=== PATIENT | male | born 1950 | race Caucasian/White ===

== ENCOUNTER → 2017-08-22 | Outpatient (CLI) | payer OTHER | LOC: BMCIMAGING 13:58 | PROVIDERS: ATTEND Internal Medicine Rheumatology | DX: M47.896 Other spondylosis, lumbar region (principal) ==

== ENCOUNTER → 2017-12-14 | Outpatient (CLI) | payer OTHER | LOC: FIMAGING 18:27 | PROVIDERS: ATTEND Internal Medicine | DX: M48.062 Spinal stenosis, lumbar region with neurogenic claudication (principal); G83.4 Cauda equina syndrome; M51.36 Other intervertebral disc degeneration, lumbar region; M43.06 Spondylolysis, lumbar region ==

== ENCOUNTER 2018-01-17 08:52 | Inpatient (IN) | payer OTHER ==
[~2018-01-17 08:52] MED LIST: TRANEXAMIC ACID 1,000 MG in NS (SYRINGE) 50 ML IV ONE
[2018-01-17] MEDS ORDERED: ACETAMINOPHEN 500 MG TAB PO ONE (09:37)
[2018-01-17] MEDS ORDERED: GABAPENTIN 300 MG CAP PO ONE (09:37)
[2018-01-17] MEDS ORDERED: ceFAZolin 2 GM/DEXTROSE 100 ML IV ONE ×2 (09:37→09:45)
[2018-01-17] MEDS ORDERED: morphINE SR 15 MG TAB PO ONE (09:37)
[2018-01-17] MEDS ORDERED: LR 1,000 ML IV ONE (09:39)
[2018-01-17] MEDS ORDERED: EPINEPHrine 1 MG/ML INJ ONE (09:43)
[2018-01-17] MEDS ORDERED: GENTAMICIN SULFATE 80 MG/2 ML VIAL ONE (09:43)
[2018-01-17] MEDS ORDERED: THROMBIN (BOVINE) 20,000 UNIT VIAL TP ONE (09:43)
[2018-01-17] MEDS ORDERED: BUPIVACAINE 0.25% 30 ML SDV ONE (09:43)
[2018-01-17] MEDS ORDERED: CHLORHEXIDINE GLUC HIBICLENS 118 ML BTL TP ONE (09:43)
--- NOTE | 2018-01-17 10:03 | PDHPUP ---
History & Physical Update H&P update statement: This history and physical update is based on an assessment of the patient which was completed after admission or registration (within 24 hours), but prior to the surgery/procedure. H&P update: H&P reviewed & patient examined, no change in patient's condition since H&P completed
--- NOTE | 2018-01-17 10:13 | PDANEPAE ---
ANE History of Present Illness L1-L4 TLIF ANE Past Medical History - Cardiovascular History Hx Hypertension: Yes Hx Arrhythmias: No Hx Chest Pain: No Hx Coronary Artery / Peripheral Vascular Disease: No Hx CHF / Valvular Disease: No Hx Palpitations: No - Pulmonary History Hx COPD: No Hx Asthma/Reactive Airway Disease: No Hx Recent Upper Respiratory Infection: No Hx Oxygen in Use at Home: No Hx Sleep Apnea: No Sleep Apnea Screening Result - Last Documented: Positive - Neurologic History Hx Cerebrovascular Accident: No Hx Seizures: No Hx Dementia: No - Endocrine History Hx Diabetes: Yes Endocrine History Comment: NEW DX DIABETES 04/2014- Type 2, managed with diet no meds - Renal History Hx Renal Disorders: No Renal History Comment: Asymptomatic stones. creat up to 1.6,? 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 - Congenital Disorder History Hx Congenital Disorders: No - GI History Hx Gastrointestinal Disorders: Yes Gastrointestinal History Comment: GERD-resolved with wt loss. - Other Health History Other Health History: Dermatitis scalp & forehead, treated with OTC creams. Rheumatoid arthritis-meds.Osteoarthritis in knees. Missing teeth upper right. Mild anemia from methotrexate.leflunemide causes rash on protestant - Chronic Pain History Chronic Pain: No - Surgical History Prior Surgeries: APPENDECTOMY. CATARACTS ARMANDO. R TKA, L TKA ANE Review of Systems Review of systems is: negative Review of Systems: - Exercise capacity Exercise capacity: >=4 METS METS (RN): 5 METS ANE Patient History - Allergies Allergies/Adverse Reactions: NSAIDS (Non-Steroidal Anti-Inflamma Adverse Reaction (Verified 01/17/18 09:53) Other-Enter Comments - Home Medications Home Medications: Folic Acid [Folic Acid 1 MG (RX)] 1 mg PO DAILY 08/04/14 [Last Taken 08/18/14] Leflunomide [Arava 10 mg (RX)] 10 mg PO DAILY 08/04/14 [Last Taken 08/18/14] Methotrexate Sodium [Methotrexate] 15 mg PO TU@09 08/04/14 [Last Taken 08/18/14] Lisinopril [Zestril 10 mg (RX)] 10 mg PO HS 08/08/14 [Last Taken 08/24/14 18:30] Hydrocodone/Acetaminophen [Bell 5/325 (*)] 1 each PO DAILY 01/04/18 [Last Taken Unknown] Tamsulosin HCl [Flomax 0.4 MG (*)] 0.4 mg PO HS 01/04/18 [Last Taken Unknown] - NPO status NPO Status: no food or drink >8 hours NPO Since - Liquids (Date): 01/16/18 NPO Since - Liquids (Time): 19:30 NPO Since - Solids (Date): 01/16/18 NPO Since - Solids (Time): 12:00 - Anes Hx Anes Hx: no prior problems - Smoking Hx Smoking Status: Former smoker Marijuana use: Yes - Alcohol Use Alcohol Use: None - Family Anes Hx Family Anes Hx: none Family Hx Anesthesia Complications: none ANE Labs/Vital Signs - Vital Signs Blood Pressure: 166/73 Heart Rate: 67 Respiratory Rate: 18 O2 Sat (%): 96 Height: 172.72 cm Weight: 88.904 kg ANE Physical Exam - Airway Neck exam: FROM Mallampati Score: Class 2 Mouth exam: normal dental/mouth exam - Pulmonary Pulmonary: no respiratory distress - Cardiovascular Cardiovascular: regular rate and rhythym - ASA Status ASA Status: II ANE Anesthesia Plan Anesthesia Plan: general endotracheal anesthesia Lines/Monitors: arterial line
[2018-01-17] MEDS ORDERED: MIDAZOLAM 2 MG/2 ML VIAL IVP ONE (10:16)
[2018-01-17] MEDS ORDERED: ROCURONIUM 50 MG/5 ML VIAL ONE (10:21)
[2018-01-17] MEDS ORDERED: REMIFENTANIL HCL 1 MG VIAL ONE ×3 (10:21→14:35)
[2018-01-17] MEDS ORDERED: PROPOFOL 200 MG/20 ML VIAL ONE (10:21)
[2018-01-17] MEDS ORDERED: fentaNYL 100 MCG/2 ML INJ ONE (10:21)
[2018-01-17] MEDS ORDERED: DEXAMETHASONE 4 MG/ML VIAL ONE (10:21)
[2018-01-17] MEDS ORDERED: PROPOFOL/EMULSION 500 MG/50 ML BOTTLE IV ONE ×3 (10:21→14:35)
[2018-01-17] MEDS ORDERED: PHENYLEPHRINE 10 MG/ML SDV ONE ×2 (11:42)
[2018-01-17] MEDS ORDERED: ceFAZolin 1 GM VIAL ONE ×2 (14:00)
[2018-01-17] MEDS ORDERED: HYDROmorphONE/DILAUDID 2 MG/ML INJ ONE (16:17)
[2018-01-17] MEDS ORDERED: NALOXONE HCL 0.4 MG/ML INJ IVP PRN (17:07)
[2018-01-17] MEDS ORDERED: LABETALOL HCL 5 MG/ML 20 ML MDV IVP PRN (17:07)
[2018-01-17] MEDS ORDERED: HYDROmorphONE/DILAUDID 1 MG/ML INJ IVP PRN (17:07)
[2018-01-17] MEDS ORDERED: ONDANSETRON 4 MG/2 ML VIAL IVP PRN ×2 (17:07→17:12)
[2018-01-17] MEDS ORDERED: ACETAMINOPHEN 500 MG TAB PO PRN (17:07)
[2018-01-17] MEDS ORDERED: oxyCODONE IR 5 MG TAB PO PRN (17:07)
[2018-01-17] MEDS ORDERED: fentaNYL 100 MCG/2 ML INJ IVP PRN (17:07)
[2018-01-17] MEDS ORDERED: DIAZEPAM 5 MG/ML 1 ML SYR IVP PRN (17:07)
[2018-01-17] MEDS ORDERED: PROMETHAZINE HCL 25 MG/ML INJ IVP PRN (17:07)
[2018-01-17] MEDS ORDERED: MEPERIDINE 25 MG/0.5 ML AMP IVP PRN (17:07)
--- NOTE | 2018-01-17 17:07 | POSTANESTH ---
Post Anesthetic Evaluation Cardiovascular Status: Normal, Stable Respiratory Status: Normal, Stable Level of Consciousness/Mental Status: Can Participate in Eval, Mildly Sleepy, Arousable Pain Control: Adequate, Prn Tx Ordered Nausea/Vomiting Control: Adequate, Prn Tx Ordered Complications Possibly Related to Anesthesia: None Noted
[2018-01-17] MEDS ORDERED: MAGNESIUM HYDROXIDE 30 ML UDCUP PO PRN (17:12)
[2018-01-17] MEDS ORDERED: ONDANSETRON DISINTEGRATING 4 MG TAB PO PRN (17:12)
[2018-01-17] MEDS ORDERED: BISACODYL 10 MG SUPP PR PRN (17:12)
[2018-01-17] MEDS ORDERED: diphenhydrAMINE 25 MG CAP PO PRN (17:12)
[2018-01-17] MEDS ORDERED: LACTULOSE 20 GM/30 ML UDCUP PO PRN (17:12)
[2018-01-17] MEDS ORDERED: POLYETHYLENE GLYCOL 3350 17 GM PKT PO PRN (17:12)
--- NOTE | 2018-01-17 17:13 | GOP ---
Corrected report [f rep st] GENERAL OPERATIVE NOTE DATE OF OPERATION: 01/17/2018 PREOPERATIVE DIAGNOSES: Lumbar stenosis, lumbar spondylosis, radiculopathy, facet cyst, lumbago. POSTOPERATIVE DIAGNOSES: Lumbar stenosis, lumbar spondylosis, radiculopathy, facet cyst, lumbago. PROCEDURE: L1-2, L2-3, L3-4 transforaminal lumbar interbody fusion. L1, L2, L3 , L4 posterior pedicle screws with Secret Labtronic Solera 4.75 system. L1-2, L2-3, L3 -4 Medtronic interbody graft with Elevate 8 x 23 x 8 mm graft at L1-2 and L2-3 and 7 x 23 mm graft at L3-4. Bilateral laminectomy and medial facetectomy with resection of facet cyst at L1-2. Bilateral laminectomy, medial facetectomy at L2-3 and L3-4. Posterior arthrodesis, autograft, allograft, BMP, and Stealth stereotaxis. NEUROSURGEON: Melissa Pinon DO. PIER RUNNER: TAMARA De La Rosa. ESTIMATED BLOOD LOSS: 350 mL. FLUIDS: 2 L crystalloid. URINE OUTPUT: 1100 mL. DRAINS: One ALEX in the subfascial space to bulb suction. SPECIMENS: None. COMPLICATIONS: None. INDICATIONS: This is a 67-year-old male with back and leg pain who has failed conservative management, elected to move forward with 3 level lumbar TLIF, L1-2 , L2-3, L3-4. He was identified, consented. Sites were marked. Brought to the operating room, anesthetized under general endotracheal tube anesthesia. Rolled onto the OR bed with a Jaxon table. All pressure points were appropriately padded. He was prepped and draped in the usual sterile fashion. The O-arm was draped and brought in and an 18-gauge spinal needles were used to preston the incision. Incision was anesthetized with 0.25% Marcaine with epinephrine. Incision was made with a 10 blade. Hemostasis was obtained with Bovie and bipolar cautery. Dissecting down onto the lamina and around the facets of L1-2, L2-3, L3-4. Some hemostasis was obtained with Aquamantys. We then placed Cokers, verified we were at the appropriate position under x-ray, placed the Stealth frame on the spinous process of L4 and took x-rays and then performed a Stealth stereotactic spin. Starting at the left on L4, we used a high-speed drill to drill off the facet at L3-4, found our starting point stereotactically with the awl, tamped it into place. Then, using the _ stereotactically, tapped and measured a 6.5 x 50 mm screw on the left. Checked the hole with a ball-tip probe and then placed the 6.5 x 50 mm screw. We performed the same procedure on the left at L3, placing a 6.5 x 50 mm screw at L2, a 6.5 x 50 mm screw at L1, a 5 x 50 mm screw secondary to pedicle size. We then moved to the other side and performed the exact same procedure, placing a 6.5 x 50 mm screw at L4, a 6.5 x 50 mm screw at L3, 6.5 x 55 mm screw at L2, and a 6.5 x 50 mm screw at L1. We stimmed all screws. All screws except the left L3 stemmed above 20. The left L3 stimmed to 12. We performed a stereotactic spin and all screws were in excellent position. We then used the stereotaxis to drill out the facet joints completely on the right side, as we were going to TLIF from the left. Once we had decorticated fully and drilled out the facet joints, we placed a 90 mm joaquim on the right and placed distraction locking the joaquim into place with the cap screws and the anti-torque device, verifying we had joaquim above and below. We had to place a 100 mm joaquim on the left , also placed distraction on the left, and the rods were in good position. We then used the Leksell to remove the spinous process, interspinous ligaments, and then used a high-speed drill collecting all the bone dust to perform a bilateral laminectomy, medial facetectomy at L1-2, L2-3, L3-4, extending this and performed complete facetectomies at L1-2, L2-3, and L3-4 on the left. There was on the right side at L1-2 a very robust facet cyst which was resected and there was no further compression from this facet cyst after resection. The medial wall of the facet cyst was well scarred to the dura, but we were able to separate and remove any areas of tethering without difficulty. We then were able to retract the nerve roots medially and, starting at L1-2, entered the disk space with an 11 blade and, using sequential libertad, shaved up to an 11, removed the cartilaginous endplates superiorly and inferiorly with ring curettes. Once these had been removed, we measured and placed an 8 x 23 mm Elevate graft after using the trial size packing BMP and the patient's own bone into the disk space, packing the graft with BMP and the patient's own bone, tamping it into place, and then once it was in the appropriate position in the AP and lateral plane, fully deploying it, packing bone posterior. We performed the same procedure at L2-3, placing 8 x 23 mm Elevate graft and at L3 placing a 7 x 23 mm graft. All grafts were in good position at the end of the case. We placed bone posterior to the graft in the disk space. We then copiously irrigated with over 3 L of gentamicin-infused saline, packed BMP into the facet joints on the right and out laterally, bilaterally, and then the patient's own bone mixed with 5 cc of Progenix into the facet joints and out laterally bilaterally. We trocar'ed the drain out inferiorly. Closed the fascia with 0 Vicryl pop-offs, subcutaneous layer with 2-0 Vicryl pop-offs, cutaneous layer with 3-0 Vicryl pop-offs. The skin was closed with 4-0 running Monocryl and Steri-Strips. The drain was sutured in with a 2-0 Vicryl pop-off placed to bulb suction. Neuromonitoring was stable, and there were no complications. /[id number]/MODL [place]ell. work type from General History and Physical (GHP) to General Operative Note (GOP), skb 01/25/2018. JANELLE
--- NOTE | 2018-01-17 17:20 | POSTOPPROG ---
Post Op Note Date of Operation: 01/17/18 Surgeon: Melissa Pinon Precision Filer Hand: Adriana Hoffman PA-C Anesthesiologist: Dr. Mata Anesthesia: GET(General Endotracheal) Pre-op Diagnosis: Lumbar stenosis Post-op Diagnosis: Lumbar stenosis Procedure: L1-L4 TLIF Inf/Abcess present in the surg proc area at time of surgery?: No Depth: Deep Incisional (Fascial) EBL: 100-500 Drains: [place] Plan Plan: 67 yo male s/p TLIF L1-L4 - neuro checks - pain control - ALEX drain x 1 - postop L-spine x-rays in am - PT/OT - wear brace when out of bed - SCDs/TEDs, Lovenox to start POD#1 Exam Seen in recovery. Following commands, RAMOS Strength full at 5/5 Incision with dressing
[2018-01-17] MEDS: METHOCARBAMOL 750 MG TAB PO PRN (18:14)
[2018-01-17] MEDS: oxyCODONE IR 5 MG TAB PO PRN (19:05)
[2018-01-17] MEDS: ACETAMINOPHEN 500 MG TAB PO SCH (21:32)
[2018-01-17] MEDS: SENNOSIDES/DOCUSATE SODIUM TAB PO SCH (21:33)
[2018-01-17] MEDS: LISINOPRIL 10 MG TAB PO SCH (21:33)
[2018-01-17] MEDS: ceFAZolin 2 GM/DEXTROSE 100 ML IV SCH (21:33)
[2018-01-17] MEDS: FAMOTIDINE 20 MG TAB PO SCH (21:33)
[2018-01-17] MEDS: TAMSULOSIN HCL 0.4 MG CAP PO SCH (21:33)
[2018-01-17 22:57] LABS: PLATELET COUNT 204 10^3/uL (150-400)
[2018-01-17 23:01] LABS: INR 1.07 (0.83-1.16); PROTIME(PATIENT) 14.1 SEC (12.0-15.0)
[2018-01-18] MEDS: oxyCODONE IR 5 MG TAB PO PRN ×4 (01:27→21:48)
[2018-01-18] MEDS: ceFAZolin 2 GM/DEXTROSE 100 ML IV SCH (05:23)
[2018-01-18] MEDS: ACETAMINOPHEN 500 MG TAB PO SCH ×3 (05:23→21:48)
--- NOTE | 2018-01-18 07:59 | NEUSURGPN ---
Assessment/Plan: 67 yo male s/p TLIF L1-L4 POD1 - neuro checks - pain control - ALEX drain x 1 - postop L-spine x-rays in am - PT/OT - wear brace when out of bed - SCDs/TEDs, Lovenox -Will over cervical spine MRI for new left arm weakness, change in sensation Subjective: denies any back pain, leg pain numbness or tingling Objective: NAD A&O3 face symmetric, MAEx4, left lead nurse 4/5, patient have some difficulty with hand control.. BLE 5/5. Incision c/d/i - Physician Patient Seen by : Kathrin Neurosurgery Physical Exam - Vitals, I&O, Labs I and O 01/17/18 01/18/18 01/19/18 05:59 05:59 05:59 Intake Total 750 Output Total 525 Balance 225 Weight 88.904 kg Intake: Oral (ml) 650 IV Intake (ml) 100 Output: Urine (ml) 425 Catheter 425 ALEX Drain Output (ml) 100 Back 100 Vital Signs Temp Pulse Resp BP Pulse Ox 36.8 C 66 16 126/74 H 95 01/18/18 07:55 01/18/18 07:55 01/18/18 07:55 01/18/18 07:55 01/18/18 07:55 Laboratory Results 01/17/18 22:39 01/17/18 22:39 ICD10 Worksheet Patient Problems: Problems Problem Status Onset Osteoarthritis of knee Acute
[2018-01-18] MEDS: ENOXAPARIN 40 MG/0.4 ML SYR SC SCH (09:40)
[2018-01-18] MEDS: SENNOSIDES/DOCUSATE SODIUM TAB PO SCH ×2 (09:40→21:47)
[2018-01-18] MEDS: FAMOTIDINE 20 MG TAB PO SCH ×2 (09:41→21:48)
--- NOTE | 2018-01-18 10:15 | PDMN ---
Medical Necessity Medical necessity: IP surgery per [facility] cpt 29709, [id number] TLIF
[2018-01-18] MEDS: LEFLUNOMIDE 10 MG TAB PO SCH (11:06)
[2018-01-18] MEDS: METHOCARBAMOL 750 MG TAB PO PRN (15:54)
--- NOTE | 2018-01-18 18:16 | GCON ---
[f rep st] CONSULTATION NEUROLOGIC CONSULTATION. REFERRING PHYSICIAN: Melissa Pinon DO HISTORY: The patient is a 67-year-old gentleman, who underwent successful lumbar spine surgery yeste rday and was doing well postoperatively but, this morning, awoke with some clumsiness of the left upp er extremity, where he said he was reaching for the phone and had trouble controlling the distance as he moved the phone toward his head and has also noticed a little bit of tingling sensation in the le ft 5th digit and portions of the 4th digit. He says there is no pain. There was a little bit of par esthesia also in portions of the forearm. He feels he is getting better during the day and maybe 70% of normal right now. He has never had this before. PAST MEDICAL HISTORY: Notable for rheumatoid arthritis, and he is on immunosuppression for that. EXAM: Blood pressure is 135/63, pulse of 74, respirations 18, temperature 36.8. No rash or swelling of the left upper extremity. Muscle power is essentially 5/5 in all muscle groups. Sensation is di minished in the right ulnar distribution. The reflexes are 1+ and symmetric. On qmiqva-rh-yrmm, he has a little bit of ataxic movement and some past-pointing. Otherwise, unremarkable exam. I reviewed the brain MRI, C-spine MRI and do not see any cord lesions or brain lesions to explain thi s. He has variable amounts of white matter disease but no evidence of acute ischemia, specifically l ooking carefully at the cerebellum and brainstem. IMPRESSION: Total unit time of 50 minutes. 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 The exact mechanism is uncertain. A little bit of compression could be possible during any surgical procedure, but there was nothing else unusual. No hypotension. Since he is getting better, I expect full resolution over a relatively short time frame and reassured the patient and his . I also updated Dr. Pinon. I will follow up on his case tomorrow and wo uld expect a little bit of physical and occupational therapy to help and then can follow up as an out patient if this does not fully resolve in a short time and consider neurodiagnostic studies if needed . /[id number]/MODL
[2018-01-18] MEDS: TAMSULOSIN HCL 0.4 MG CAP PO SCH (21:48)
[2018-01-18] MEDS: LISINOPRIL 10 MG TAB PO SCH (21:48)
[2018-01-19] MEDS: METHOCARBAMOL 750 MG TAB PO PRN ×2 (02:00→21:01)
[2018-01-19] MEDS: oxyCODONE IR 5 MG TAB PO PRN ×5 (02:00→21:01)
[2018-01-19] MEDS: ACETAMINOPHEN 500 MG TAB PO SCH ×3 (06:01→22:38)
--- NOTE | 2018-01-19 09:00 | NEUROPROG ---
Assessment: Total unit time of 15 min. Patient probably had some and palm of the left brachial plexus or ulnar nerve creating a temporary impairment of the arm but that is all resolving rather rapidly and he can follow up as needed as an outpatient. Subjective: The patient says that he feels about 90% back to normal at this point. Objective: Vital Signs Temp Pulse Resp BP Pulse Ox 36.9 C 64 16 129/57 H 96 01/19/18 07:36 01/19/18 07:36 01/19/18 07:36 01/19/18 07:36 01/19/18 07:36 Laboratory Results 01/17/18 22:39 01/17/18 22:39 01/18/18 01/19/18 01/20/18 05:59 05:59 05:59 Intake Total 750 2000 Output Total 525 2265 Balance 225 -265 PT 14.1 SEC (12.0-15.0) 01/17/18 22:39 INR 1.07 (0.83-1.16) 01/17/18 22:39 There is no definite weakness or sensory loss. He has just the slightest degree of discoordination on bapkjz-pn-zonp testing. Allergies/Adverse Reactions: NSAIDS (Non-Steroidal Anti-Inflamma Allergy (Verified 01/17/18 10:18) Other-Enter Comments
[2018-01-19] MEDS: ENOXAPARIN 40 MG/0.4 ML SYR SC SCH (09:45)
[2018-01-19] MEDS: FAMOTIDINE 20 MG TAB PO SCH ×2 (09:45→21:01)
[2018-01-19] MEDS: SENNOSIDES/DOCUSATE SODIUM TAB PO SCH ×2 (09:45→21:01)
[2018-01-19] MEDS: LEFLUNOMIDE 10 MG TAB PO SCH (09:45)
--- NOTE | 2018-01-19 11:54 | NEUSURGPN ---
Assessment/Plan: 67 yo male s/p TLIF L1-L4 POD2 - neuro checks - pain control - ALEX drain x 1, will continue today - postop L-spine x-rays pending - PT/OT - wear brace when out of bed - SCDs/TEDs, Lovenox -left hand incoordination improving. Appreciate neurology recs. cervical and lumbar MRI negative for acute process Subjective: low back pain tolerable with medication. left hand function improved. . Objective: O: NAD A&Ox3 MAEX4, 5/5 and equal in BUE and BLE. Dressing c/d/i. - Physician Patient Seen by : Kathrin Neurosurgery Physical Exam - Vitals, I&O, Labs I and O 01/18/18 01/19/18 01/20/18 05:59 05:59 05:59 Intake Total 750 2000 Output Total 525 2265 Balance 225 -265 Weight 88.904 kg Intake: Oral (ml) 650 2000 IV Intake (ml) 100 Output: Urine (ml) 425 1875 Catheter 425 Urinal 1875 ALEX Drain Output (ml) 100 390 Back 100 390 Other: Intake Quantity No Sufficient Number of Voids Urinal 4 Vital Signs Temp Pulse Resp BP Pulse Ox 36.9 C 64 16 129/57 H 96 01/19/18 07:36 01/19/18 07:36 01/19/18 07:36 01/19/18 07:36 01/19/18 07:36 Laboratory Results 01/17/18 22:39 01/17/18 22:39 ICD10 Worksheet Patient Problems: Problems Problem Status Onset Osteoarthritis of knee Acute
--- NOTE | 2018-01-19 16:20 | ASMTCMCOM ---
CM Note CM Note Notes: OT rec home, PT rec home health care with 24/hr supervision. CM to follow up with pt to determine if pt agreeable to home health. D/c plan of care: TBD Date Signed: 01/19/2018 04:19 PM Electronically Signed By:ANA Scott
[2018-01-19] MEDS: TAMSULOSIN HCL 0.4 MG CAP PO SCH (21:01)
[2018-01-19] MEDS: LISINOPRIL 10 MG TAB PO SCH (21:01)
[2018-01-20] MEDS: ACETAMINOPHEN 500 MG TAB PO SCH ×2 (06:24→14:29)
[2018-01-20 07:39] VITALS: BP 120/58
[2018-01-20] MEDS: SENNOSIDES/DOCUSATE SODIUM TAB PO SCH (08:04)
[2018-01-20] MEDS: ENOXAPARIN 40 MG/0.4 ML SYR SC SCH (08:04)
[2018-01-20] MEDS: FAMOTIDINE 20 MG TAB PO SCH (08:05)
[2018-01-20] MEDS: METHOCARBAMOL 750 MG TAB PO PRN (08:05)
[2018-01-20] MEDS: LEFLUNOMIDE 10 MG TAB PO SCH (08:05)
[2018-01-20] MEDS: oxyCODONE IR 5 MG TAB PO PRN ×2 (08:10→12:46)
--- NOTE | 2018-01-20 11:07 | PDIAF ---
- Diagnosis Code Status: Full Code - Medication Management Discharge Medications: Medications to Continue on Transfer Folic Acid [Folic Acid 1 MG (*)] 1 mg PO DAILY 08/04/14 [Last Taken 08/18/14] Leflunomide [Arava 10 mg (*)] 10 mg PO DAILY 08/04/14 [Last Taken 08/18/14] Methotrexate Sodium [Methotrexate] 15 mg PO TU@09 08/04/14 [Last Taken 08/18/14] Lisinopril [Zestril 10 mg (*)] 10 mg PO HS 08/08/14 [Last Taken 08/24/14 18:30] Tamsulosin HCl [Flomax 0.4 MG (*)] 0.4 mg PO HS 01/04/18 [Last Taken Unknown] Acetaminophen [Tylenol ES 500 mg (*)] 1,000 mg PO Q8HRS tab 01/20/18 [Last Taken Unknown] Methocarbamol [Robaxin 750 mg (*)] 750 mg PO Q8HRS PRN #60 tab 01/20/18 [Last Taken Unknown] Polyethylene Glycol 3350 [Miralax 17 gm (*)] 17 gm PO DAILY PRN pkt 01/20/18 [ Last Taken Unknown] Sennosides/Docusate Sodium [Senokot-S] 1 - 2 tab PO BID tab 01/20/18 [Last Taken Unknown] oxyCODONE IR [Oxycodone Ir (*)] 5 - 10 mg PO Q4HRS PRN #90 tab 01/20/18 [Last Taken Unknown] Discharge Medications: Refer to the Discharge Home Medication list for PRN reason. - Orders Services needed: Home Care, Physical Therapy Home Care Face to Face: I certify that this patient was under my care and that I had the required [id number] encounter meeting the encounter requirements on the discharge day. My findings support the fact that the patient is homebound as defined in Home Care Face to Face Continued: CMS Chapter 7 Medicare Benefits Manual 30.1.1 , The condition of the patient is such that there exists a normal inability to leave home and consequently, leaving home would require a considerable and taxing effort. Isolation Type: None Additional Instructions: 1. Follow up with Dr. Pinon in 2 weeks. [phone] 2. Wear brace when out of bed, ok to remove for showering. 3. Refrain from lifting more than 10 pounds and bending/twisting. 4. Avoid Ibuprofen, Motrin, Aleve, Advil (all NSAIDs). Ok to take Tylenol. 5. Ok to shower and get incision wet starting 01/20/18. Be gentle, no scrubbing. 6. Call Dr. Pinon's office with any questions/concerns. - Follow Up Care Current Providers and Referrals: Melissa Pinon DO [Doctor of Osteopathy] - follow up in 2 weeks Todd Arredondo MD [Primary Care Provider] -
[2018-01-20] MEDS ORDERED: SIMETHICONE 80 MG TAB CHEW PO PRN (14:17)
--- NOTE | 2018-01-20 17:45 | ASDISCHSUM ---
Discharge Information Plan Status:Home with Home Health Medically Cleared to Leave: Discharge Date:01/20/2018 03:46 PM CM D/C Disposition:Home Health Service ADT D/C Disposition:Home, Routine, Self-Care Projected Discharge Date:01/20/2018 11:00 AM Transportation at D/C: Discharge Delay Reason: Follow-Up Date:01/20/2018 11:00 AM Discharge Slot: Final Diagnosis: Placement Information Referral Type:*Home Health Care Services Referral ID:[id number] Provider Name:[facility] Address 1:[address] [address] Address 2: City:[place] Selection Factors: State:[place] Patient Contact Information Contact Name:SABRINA Relationship:Life Partner Address:[address] City:[place] Alternate Phone: State/Zip Code:[place] [address] Email: Financial Information Financial Class:Medicare Primary Plan Desc:MEDICARE IP PART B ONLY Primary Plan Number:[id number] Secondary Plan Desc:[employer]IN [employer]INCE PPO Secondary Plan Number:[id number] Assessment Information LACE LACE Length of stay for Answers: 4-6 days current admission Acuity / Level of Answers: Yes Care: Did the patient have an inpatient admission? Comorbidities - select Answers: Diabetes (uncontrolled or all that apply controlled) Other Notes: HTN; GERD # of Emergency department Answers: 0 visits in the last 6 months Score: 9 Date Signed: 01/20/2018 05:44 PM Electronically Signed By:Silvia Schwartz RN [facility] CM Progress Note CM Note CM Note Notes: OT rec home, PT rec home health care with 24/hr supervision. CM to follow up with pt to determine if pt agreeable to home health. D/c plan of care: TBD Date Signed: 01/19/2018 04:19 PM Electronically Signed By:ANA Scott Case Management Discharge Plan Note Case Management Discharge Discharge Order Complete? Answers: Yes Patient to Obtain Answers: via Family Medications Transportation Arranged Answers: Family/Friends Faxed Final Orders Answers: Yes Family Notified Answers: Yes Notes: present Discharge Comments Notes: Pt will dc home today with . He will have 24 hr supervision btw his and son. He would like to have home PT ad this was recommended by PT. [facility] able to accept pending insurance verfication on Monday- spoke w/Aug from [employer] and she will be in touch w/pt and/or . Orders sent through [facility]; discussed w/RN and PA. Date Signed: 01/20/2018 02:52 PM Electronically Signed By:Silvia Schwartz RN Intervention Information
[2018-01-23] MEDS ORDERED: METHOTREXATE 2.5 MG TAB PO SCH (09:00)
== END 2018-01-20 15:46 | disposition home or self-care (01) | DRG 460 ==
LOC: F3N 08:52
PROVIDERS: ADMIT Neurological Surgery; ATTEND Neurological Surgery
PROC: 3E0U0GB Introduction of Recombinant Bone Morphogenetic Protein into Joints, Open Approach (ICD-10-PCS; principal; 2018-01-17 11:15)
PROC: 0SG10AJ Fusion of 2 or more Lumbar Vertebral Joints with Interbody Fusion Device, Posterior Approach, Anterior Column, Open Approach (ICD-10-PCS; principal; 2018-01-17 11:15)
PROC: 0MB Bursae and Ligaments, Excision (ICD-10-PCS; principal; 2018-01-17 11:15)
PROC: 0QB00ZZ Excision of Lumbar Vertebra, Open Approach (ICD-10-PCS; principal; 2018-01-17 11:15)
DX: M47.26 Other spondylosis with radiculopathy, lumbar region (principal); M48.061 Spinal stenosis, lumbar region without neurogenic claudication; M71.38 Other bursal cyst, other site; Z87.891 Personal history of nicotine dependence
CPT/HCPCS: 97116-GP; 97161-GP; 97165-GO; 97535-GO; C1713; G8978-GP-CI; G8979-GP-CI; G8980-GP-CI; G8987-GO-CI; G8988-GO-CH; G8989-GO-CI; J0171; J0690; J1100; J1170; J1580; J1650; J2250; J2270; J2370; J2704; J3010

== ENCOUNTER → 2018-02-27 | Outpatient (CLI) | payer OTHER | LOC: FIMAGING 10:10 | PROVIDERS: ATTEND Physician Assistant Surgical | DX: Z09 Encounter for follow-up examination after completed treatment for conditions other than malignant neoplasm (principal); Z87.39 Personal history of other diseases of the musculoskeletal system and connective tissue; Z98.1 Arthrodesis status ==

== ENCOUNTER → 2018-04-14 | Outpatient (CLI) | payer OTHER | LOC: FLAB 11:59 → FIMAGING 11:59 → EDSTATUS 12:01 | PROVIDERS: ATTEND Neurological Surgery | DX: M48.062 Spinal stenosis, lumbar region with neurogenic claudication (principal); Z98.1 Arthrodesis status ==

== ENCOUNTER → 2018-07-18 | Outpatient (CLI) | payer OTHER | LOC: FIMAGING 14:20 | PROVIDERS: ATTEND Neurological Surgery | DX: Z09 Encounter for follow-up examination after completed treatment for conditions other than malignant neoplasm (principal); Z98.1 Arthrodesis status; M48.062 Spinal stenosis, lumbar region with neurogenic claudication; M43.16 Spondylolisthesis, lumbar region; M46.96 Unspecified inflammatory spondylopathy, lumbar region ==

== ENCOUNTER → 2019-01-08 | Outpatient (CLI) | payer OTHER | LOC: FIMAGING 15:51 ==